=== PATIENT | female | born 1950 | race Caucasian/White ===

== ENCOUNTER 2019-12-14 13:37 | Emergency (ER) | payer MEDICARE, OTHER, SELFPAY ==
--- NOTE | ~2019-12-14 | XR_ITS ---
EXAMINATION: XR chest 2V EXAM DATE: 12/14/2019 16:06 INDICATION: Left upper chest, back pain. History of aortic stenosis. TECHNIQUE: Frontal and lateral projections of the chest obtained and reviewed. There is no prior tam dy for comparison. FINDINGS: Right axillary surgical clips. There is aortic arterial sclerosis. The lungs are clear. T here are no pleural effusions. The cardiomediastinal silhouette is within normal limits. There is n o pneumothorax suspected. The bones and soft tissues are unremarkable. IMPRESSION: No acute cardiopulmonary findings. Reviewed, dictated and finalized at location B. COVER CUTTER
--- NOTE | 2019-12-14 14:22 | ECG_ITS ---
Measurements Intervals [place] Rate: 75 P: 72 NC: 179 QRS: 58 QRSD: 81 T: 80 QT: 389 QTc: 435 Interpretive Statements SINUS RHYTHM NONSPECIFIC ST & T-WAVE ABNORMALITY- LATERAL LEADS BORDERLINE ECG Electronically Signed On 12-14-2019 15:52:59 PLASTIC PRESS OPERATOR by Kaden Loera D.O.
[2019-12-14 15:23] VITALS: BP 187/81; PULSE 75; RESP 16; TEMP 36.7; O2SAT 98
[2019-12-14 15:35] LABS: Basophils Absolute Auto 0.1 K/mm3 (0.0-0.1); Basophils Percent Auto 0.8 % (0.2-1.2); Eosinophils Absolute Auto 0.3 K/mm3 (0-0.3); Eosinophils Percent Auto 3.3 % (0-4.4); Hematocrit 37.6 % (37.0-47.0); Hemoglobin 12.1 g/dL (12.0-15.0); Immature Granulocyte Absolute 0.02 K/mm3 (0.00-0.031); Immature Granulocyte Percent A 0.3 % (0-0.5); Lymphocytes Absolute Auto 2.42 K/mm3 (0.9-3.2); Lymphocytes Percent Auto 30.5 % (18.3-44.2); Mean Corpuscular HGB Conc 32.2 g/dl (32-36); Mean Corpuscular Hemoglobin 27.1 pg (26-34); Mean Corpuscular Volume 84.1 fl (80-100); Mean Platelet Volume 10.2 fl (7.4-10.4); Monocytes Absolute Auto 0.9 K/mm3 (0.1-0.6); Monocytes Percent Auto 11.1 % (2.6-8.5); Neutrophils Absolute Auto 4.3 K/mm3 (1.3-6.7); Platelet Count Result 246 k/mm3 (150-375); Red Blood Count 4.47 M/mm3 (4.2-5.4); Red Cell Distribution Width 13.8 % (11.5-14.5); White Blood Count 7.9 K/mm3 (4.5-10.0)
[2019-12-14 15:46] LABS: Partial Thromboplastin Time 25.4 SECONDS (22.3-36.8); Prothrombin Time 13.1 Seconds (11.1-14.7)
[2019-12-14 15:49] LABS: Blood Urea Nitrogen 18 mg/dL (7-17); Calcium 9.7 mg/dL (8.4-10.2); Carbon Dioxide 31 mmol/L (22-30); Chloride 97 mmol/L (98-107); Estimated CRCL calculation 60 ml/min; Estimated Glomerular Filt Rate > 60; Glucose 123 mg/dL (65-105); Potassium 3.6 mmol/L (3.4-5.0); Sodium 139 mmol/L (137-145)
[2019-12-14 16:00] LABS: Troponin I < 0.012 ng/mL (0.000-0.034)
--- NOTE | 2019-12-14 18:37 | ED.GENADULT ---
HPI - General Adult General Chief complaint: Chest Pain <YOLY Palumbo Last Filed: 12/14/19 19:35> Stated complaint: burning in chest and through to her back <YOLY Palumbo Last Filed: 12/14/19 19:35> Time Seen by Provider: 12/14/19 18:14 <YOLY Palumbo Last Filed: 12/14/19 19:35> Source: patient <YOLY Palumbo Last Filed: 12/14/19 19:35> Mode of arrival: ambulatory <YOLY Palumbo Last Filed: 12/14/19 19:35> Limitations: no limitations <YOLY Palumbo Last Filed: 12/14/19 19:35> History of Present Illness HPI narrative: Patient is a 69-year-old female who presents with midsternal heaviness that began at 1:00 today upon waking and has persisted and decreased slightly patient did take aspirin due to the pain patient denies similar history and notes that she has had a few episodes of burning in the chest when ambulating with her dogs that was self limited and resolved. Patient denies any dyspnea lightheadedness dizziness. Patient does radiate into the left neck and occasionally into the back. Patient notes the pain is a mild pain at this time <YOLY Palumbo Last Filed: 12/14/19 19:35> Related Data Home medications: Home Medications Medication Instructions Recorded Confirmed aspirin 325 mg PO BID 12/14/19 12/14/19 cholecalciferol (vitamin D3) 2,000 unit PO DAILY 12/14/19 12/14/19 ezetimibe mg 12/14/19 lisinopril-hydrochlorothiazide tablet 12/14/19 omega 6-fzz-ycv-fish oil [Fish Oil] 340 cap PO 12/14/19 omeprazole 12/14/19 rosuvastatin 40 mg PO DAILY 12/14/19 12/14/19 <YOLY Palumbo Last Filed: 12/14/19 19:35> Allergies/adverse reactions: Allergies Allergy/AdvReac Type Severity Reaction Status Date / Time No Known Allergies Allergy Verified 12/14/19 18:48 <YOLY Palumbo Last Filed: 12/14/19 19:35> Review of Systems Review of Systems: All systems reviewed & are unremarkable except as noted in HPI and below <Pineda Ruvalcaba PA-C - Last Filed: 12/14/19 19:35> [facility] Past Medical History Medical History: Medical History Gastroesophageal reflux disease History of hypertension Hyperlipidemia <Pineda Ruvalcaba PA-C - Last Filed: 12/14/19 19:35> Social History Social History: Social History (Updated 12/14/19 @ 18:42 by Pineda Ruvalcaba PA-C) Smoking status: Never smoker <Pineda Ruvalcaba PA-C - Last Filed: 12/14/19 19:35> Exam Narrative: Exam Narrative: GENERAL: Well-appearing, well-nourished, and in no acute distress. HEAD: Normocephalic, atraumatic. EYES: PERRLA and EOMI. ENT: Nares clear, no rhinorrhea or epistaxis. Mucous membranes moist. Oropharynx without tonsillar hypertrophy exudate or other lesions. NECK: Supple. No adenopathy or masses. CHEST: Clear to auscultation. No respiratory distress. No wheezes rales or rhonchi HEART: Regular rate and rhythm. No murmur heard. Normal peripheral pulses. ABDOMEN: Soft, nontender, nondistended EXTREMITIES: Normal range of motion. No edema. SKIN: Warm, dry, no rash. NEURO: No focal deficits. Alert and oriented x3. Cranial nerves II through XII grossly intact PSYCH: Normal mood and affect. <Pineda uRvalcaba PA-C - Last Filed: 12/14/19 19:35> Course Course Emergency Course: Patient complained of chest pain at 2220, I repeated the EKG which was unremarkable no significant change. Advised to place a inch of Nitropaste. <Benny Covington MD - Last Filed: 12/14/19 22:48> REPAIR SERVICE DISPATCHER/PA Physician Supervision Patient in the room at this time aware of case findings treatment plan and diagnosis in no distress <Pineda Ruvalcaba PA-C - Last Filed: 12/14/19 19:35> Consultations Consultation #1: Discussed case with cardiology Julio César and hospitalist in [facility] who have agreed to accept the patient for transfer <Pineda Ruvalcaba
[2019-12-14] MEDS: NITROGLYCERIN SL 0.4 MG TABLET SUBLINGUAL (18:45)
[2019-12-14 18:46] VITALS: BP 173/67; PULSE 64; RESP 15; O2SAT 97
[2019-12-14 18:53] LABS: Troponin I 0.224 ng/mL (0.000-0.034)
[2019-12-14 18:54] VITALS: BP 136/54; PULSE 69; RESP 14; O2SAT 93
--- NOTE | 2019-12-14 18:54 | ECG_ITS ---
Measurements Intervals [place] Rate: 71 P: 45 [place]: 190 QRS: 38 QRSD: 93 T: 93 QT: 386 QTc: 422 Interpretive Statements SINUS RHYTHM BORDERLINE ST-T WAVE ABNORMALITY- LATERAL LEADS BORDERLINE ECG Electronically Signed On 12-15-2019 6:59:10 LEAD NET SOFTWARE DEVELOPER by Kaden Loera D.O.
[2019-12-14] MEDS: HEPARIN SODIUM 5,000 UNITS/ML VIAL 4000 UNITS IV PUSH (19:23)
[2019-12-14 19:39] LABS: Basophils Absolute Auto 0.1 K/mm3 (0.0-0.1); Basophils Percent Auto 0.6 % (0.2-1.2); Eosinophils Absolute Auto 0.2 K/mm3 (0-0.3); Eosinophils Percent Auto 1.9 % (0-4.4); Hematocrit 34.7 % (37.0-47.0); Hemoglobin 11.4 g/dL (12.0-15.0); Immature Granulocyte Absolute 0.01 K/mm3 (0.00-0.031); Immature Granulocyte Percent A 0.1 % (0-0.5); Lymphocytes Absolute Auto 2.76 K/mm3 (0.9-3.2); Lymphocytes Percent Auto 29.5 % (18.3-44.2); Mean Corpuscular HGB Conc 32.9 g/dl (32-36); Mean Corpuscular Hemoglobin 27.4 pg (26-34); Mean Corpuscular Volume 83.4 fl (80-100); Mean Platelet Volume 10.2 fl (7.4-10.4); Monocytes Absolute Auto 0.9 K/mm3 (0.1-0.6); Monocytes Percent Auto 9.9 % (2.6-8.5); Neutrophils Absolute Auto 5.4 K/mm3 (1.3-6.7); Platelet Count Result 241 k/mm3 (150-375); Red Blood Count 4.16 M/mm3 (4.2-5.4); Red Cell Distribution Width 13.9 % (11.5-14.5); White Blood Count 9.4 K/mm3 (4.5-10.0)
[2019-12-14] MEDS: MORPHINE SULFATE 2 MG/ML INJ IV PUSH (19:46)
[2019-12-14 19:49] LABS: INR 1.2; Prothrombin Time 14.5 Seconds (11.1-14.7)
[2019-12-14] MEDS: HEPARIN SOD/D5W 100 UNITS/ML 25,000 UNITS/250 ML BAG 8 UNITS IV CONT (19:58)
[2019-12-14 20:06] LABS: Partial Thromboplastin Time > 200.0 SECONDS (22.3-36.8)
--- NOTE | 2019-12-14 20:13 | PC.NURSE ---
Called [facility] to transport to [facility], Rm [id number]. ETA [id number]. #[id number]
[2019-12-14 20:29] VITALS: BP 169/71; PULSE 62; RESP 11; O2SAT 98
[2019-12-14 22:06] VITALS: BP 164/57; PULSE 69; RESP 15; O2SAT 94
[2019-12-14] MEDS: NITROGLYCERIN OINTMENT 1 INCH DOSE (22:24)
== END 2019-12-14 22:53 | disposition short-term general hospital (02) ==
PROVIDERS: Emergency Medicine; Emergency Medicine Emergency Medical Services; Emergency Provider Family Medicine
DX: I21.4 Non-ST elevation (NSTEMI) myocardial infarction (principal); K21.9 Gastro-esophageal reflux disease without esophagitis; I10 Essential (primary) hypertension; E78.5 Hyperlipidemia, unspecified
CPT/HCPCS: 36415; 71046; 80048; 84484; 85025; 85610; 85730; 93005; 96365; 96375; 99291; A9270; J1644; J2270

== ENCOUNTER 2020-03-29 23:04 | Emergency (ER) | payer MEDICARE, OTHER, SELFPAY ==
--- NOTE | ~2020-03-29 | XR_ITS ---
EXAMINATION: XR hand LT min 3V DATE: 03/30/2020 00:19 INDICATION: Cat bite. TECHNIQUE: 3 views of left hand were obtained. COMPARISON: None. FINDINGS: Bone alignment is normal. No fracture. There is mild osteoarthritis of first carpometacarpa l joint, first interphalangeal joint, and second and fifth distal interphalangeal joints. No radiopaq ue foreign body. IMPRESSION: 1. Mild polyarticular osteoarthritis. Reviewed, dictated and finalized at location A.
[2020-03-29 23:07] VITALS: BP 218/82; PULSE 73; RESP 18; TEMP 36.9; O2SAT 97
--- NOTE | 2020-03-30 00:08 | ED.WOUNDLAC ---
HPI - Wound/Laceration General Chief Complaint: Wound/Laceration Stated Complaint: cat bite Time Seen by Provider: 03/29/20 23:56 History of Present Illness HPI narrative: Patient presents after her cat bit her at 3 PM this afternoon. She washed it well and put on some antibiotic ointment. Started to swell later in the evening. So she came in. She gauges the pain is 2 out of 10. There is no redness. She is a retired OR nurse.. She understands that she may have to return for IV antibiotics. She had a new aortic valve done in the spring, and is not on anticoagulants. Onset (ago): hour(s) Extremity Location: Left: hand Place: home Context: accidental Associated symptoms: pain Treatments prior to arrival: other (Antibiotic ointment) Related Data Home Medications Medication Instructions Recorded Confirmed aspirin 325 mg PO BID 12/14/19 12/14/19 cholecalciferol (vitamin D3) 2,000 unit PO DAILY 12/14/19 12/14/19 ezetimibe mg 12/14/19 lisinopril-hydrochlorothiazide tablet 12/14/19 omega 7-snh-baa-fish oil [Fish Oil] 340 cap PO 12/14/19 omeprazole 12/14/19 rosuvastatin 40 mg PO DAILY 12/14/19 12/14/19 Allergies Allergy/AdvReac Type Severity Reaction Status Date / Time No Known Allergies Allergy Verified 03/29/20 23:12 Review of Systems Review of Systems: Narrative: CONSTITUTIONAL: Denies fever, chills, or sweats. EYES: Denies visual changes, redness, or discharge. ENT: Denies rhinorrhea, congestion, sore throat, or otalgia. CARDIOVASCULAR: Denies chest pain, palpitations, or edema. RESPIRATORY: Denies cough or dyspnea. GASTROINTESTINAL: Denies abdominal pain, nausea, vomiting, or diarrhea. GENITOURINARY: Denies dysuria or hematuria. SKIN: Denies rash or itching. MUSCULOSKELETAL: Denies back pain, joint pain, or myalgia. NEUROLOGIC: Denies headache, numbness, or weakness. PSYCHIATRIC: Denies anxiety or depression. [facility] Past Medical History Medical History Gastroesophageal reflux disease History of hypertension Hyperlipidemia Surgical History Surgical History (Updated 03/30/20 @ 00:10 by Arianne Lozano MD) History of aortic valve replacement Social History Social History Smoking status: Never smoker Gender identity (if verbalized by the patient): Female Exam Narrative: Exam Narrative: GENERAL: Well-appearing, well-nourished, and in no acute distress. HEAD: Normocephalic, atraumatic. EYES: PERRLA and EOMI. ENT: Nares clear, no rhinorrhea or epistaxis. Mucous membranes moist. NECK: Supple. CHEST: Clear to auscultation. No respiratory distress. HEART: Regular rate and rhythm. No murmur heard. Normal peripheral pulses. ABDOMEN: Soft, nontender, nondistended, normal active bowel sounds. EXTREMITIES: Normal range of motion. Left hand with puncture wound and mild swelling and tenderness. SKIN: Warm, dry, no rash. NEURO: No focal deficits. Alert and oriented x3. PSYCH: Normal mood and affect. Course Vital Signs Vital signs: Vital Signs Temperature 98.5 F 03/29/20 23:07 Pulse Rate 73 03/29/20 23:07 Respiratory Rate 18 03/29/20 23:07 Blood Pressure 218/82 H 03/29/20 23:07 Pulse Oximetry 97 03/29/20 23:07 Temperature 98.5 F 03/29/20 23:07 Pulse Rate 73 03/29/20 23:07 Respiratory Rate 18 03/29/20 23:07 Blood Pressure 218/82 H 03/29/20 23:07 Pulse Oximetry 97 03/29/20 23:07 MDM - Wound/Laceration Medical Records Attestation: I reviewed the patient's medical records. Imaging Data Attestation: I personally reviewed and interpreted this imaging study as follows: My impression: Soft tissue swelling Discharge Plan Discharge Clinical Impression: Cat bite Qualifiers: Encounter type: initial encounter Qualified Code(s): W55.01XA - Bitten by cat, initial encounter Patient Disposition: Home, Self-Care Condition: Serious Instructions: Antibiotic Fo
[2020-03-30] MEDS: AMOXICILLIN/CLAVULANATE K 875-125 MG TAB 1 TABLET PO (00:20)
[2020-03-30 01:03] VITALS: BP 181/98; PULSE 72; RESP 16; TEMP 36.6; O2SAT 100
== END 2020-03-30 01:05 | disposition home or self-care (01) ==
PROVIDERS: Emergency Provider Emergency Medicine
DX: S61.452A Open bite of left hand, initial encounter (principal); Z79.82 Long term (current) use of aspirin; Z95.2 Presence of prosthetic heart valve; K21.9 Gastro-esophageal reflux disease without esophagitis; I10 Essential (primary) hypertension; E78.5 Hyperlipidemia, unspecified; W55.01XA Bitten by cat, initial encounter
CPT/HCPCS: 73130; 99283; A9270

== ENCOUNTER 2020-08-08 10:30 | Outpatient (RCR) | payer MEDICARE, OTHER, SELFPAY ==
[2020-05-15 08:38] VITALS: PULSE 62
== END 2020-08-08 19:00 | disposition home or self-care (01) ==
LOC: ANHCPREHAB 10:30
DX: Z95.2 Presence of prosthetic heart valve (principal)
CPT/HCPCS: 93798